=== PATIENT | female | born 1970 | race Caucasian/White ===

== ENCOUNTER 2019-04-12 05:17 | Observation (INO) | payer BC ==
[2019-04-09 09:46] LABS: HEMATOCRIT 32.5 % (36.0-47.0); HEMOGLOBIN 10.3 g/dL (12.0-15.5); MEAN CORPUSCULAR HEMOGLOBIN 23.9 pg (27.0-33.4); MEAN CORPUSCULAR HGB CONC 31.7 g/dL (32.0-36.0); MEAN CORPUSCULAR VOLUME 75 fl (80-97); PLATELET COUNT 369 10^3/uL (150-450); RED BLOOD COUNT 4.32 10^6/uL (3.72-5.28); WHITE BLOOD COUNT 6.9 10^3/uL (4.0-10.5)
[2019-04-09 10:09] LABS: ALKALINE PHOSPHATASE 55 U/L (38-126); ANION GAP 8 (5-19); ASPARTATE AMINO TRANSFERASE 20 U/L (14-36); BILIRUBIN,DIRECT 0.3 mg/dL (0.0-0.4); BILIRUBIN,TOTAL 0.5 mg/dL (0.2-1.3); BLOOD UREA NITROGEN 13 mg/dL (7-20); CALCIUM 9.2 mg/dL (8.4-10.2); CARBON DIOXIDE 28 mmol/L (22-30); CHLORIDE 102 mmol/L (98-107); GLUCOSE 78 mg/dL (75-110); POTASSIUM 4.4 mmol/L (3.6-5.0); TOTAL PROTEIN 7.3 g/dL (6.3-8.2)
[2019-04-09 10:35] LABS: APPEARANCE,URINE CLEAR; BILIRUBIN,URINE NEGATIVE (NEGATIVE); COLOR,URINE YELLOW; GLUCOSE, URINE NEGATIVE (NEGATIVE); KETONES,URINE NEGATIVE (NEGATIVE); LEUKOCYTE ESTERASE,URINE NEGATIVE (NEGATIVE); NITRITE,URINE NEGATIVE (NEGATIVE); PROTEIN,URINE NEGATIVE (NEGATIVE); URINE SPECIFIC GRAVITY 1.009; UROBILINOGEN,URINE NEGATIVE mg/dL (<2.0)
[~2019-04-12 05:17] MED LIST: CEFAZOLIN 1 GM/D5W RTU 1 GM/50 ML RTUPB IV ONE; CEFAZOLIN 1 GM/D5W RTU 1 GM/50 ML RTUPB IV PRN; LACTATED RINGERS 1000 ML IV PRN; LIDOCAINE 0.5% INJ-PF (5 MG/ML) 50 ML SDV SUBCUT PRN
[2019-04-12] MEDS ORDERED: FENTANYL CITRATE INJ/PF 100 MCG/2 ML AMPUL ONE ×2 (06:49→09:01)
[2019-04-12] MEDS ORDERED: HYDROMORPHONE HCL INJ/PF 2 MG/ML AMPULE ONE (06:49)
[2019-04-12] MEDS ORDERED: MIDAZOLAM 2 MG/2 ML INJ ONE (06:50)
[2019-04-12] MEDS ORDERED: PROPOFOL INJ 200 MG/20 ML VIAL IV ONE (06:50)
[2019-04-12] MEDS ORDERED: SUCCINYLCHOLINE CHLORIDE INJ 200 MG/10 ML VIAL ONE (09:01)
[2019-04-12] MEDS ORDERED: DEXAMETHASONE SOD PHOSPHATE INJ 4 MG/1 ML VIAL ONE (09:01)
[2019-04-12] MEDS ORDERED: ONDANSETRON HCL INJ/PF 4 MG/2 ML SDV ONE (09:01)
[2019-04-12] MEDS ORDERED: KETOROLAC TROMETHAMINE 60 MG/2 ML SDV ONE (09:01)
[2019-04-12] MEDS ORDERED: VECURONIUM BROMIDE INJ 10 MG VIAL IV ONE (09:01)
[2019-04-12] MEDS ORDERED: LIDOCAINE 2% INJ-PF (20 MG/ML) 2 ML AMPUL ONE (09:01)
[2019-04-12] MEDS ORDERED: LIDOCAINE 1%/EPINEPHRINE INJ 20 ML VIAL ONE (09:46)
[2019-04-12] MEDS ORDERED: LIDOCAINE 1%/EPINEPHRINE INJ 20 ML VIAL INJ ONE (10:00)
[2019-04-12] MEDS ORDERED: ESTROGENS,CONJUGATED 0.625 MG/1 GM 30 GM TUBE PV ONE (10:00)
[2019-04-12] MEDS ORDERED: MEPERIDINE HCL/PF INJ 25 MG/1 ML DISP.SYRIN IV PRN (10:01)
[2019-04-12] MEDS ORDERED: MORPHINE SULFATE 10 MG/ML INJ IV PRN ×2 (10:01→10:52)
[2019-04-12] MEDS ORDERED: DIPHENHYDRAMINE HCL 50 MG/ML VIAL IV PRN (10:01)
[2019-04-12] MEDS ORDERED: PROMETHAZINE HCL INJ 25 MG/1 ML VIAL IV PRN (10:01)
[2019-04-12] MEDS ORDERED: FENTANYL CITRATE INJ/PF 100 MCG/2 ML AMPUL IV PRN ×3 (10:01)
[2019-04-12] MEDS ORDERED: ACETAMINOPHEN 1,000 MG/100 ML RTUPB IV ONE ×2 (10:45→19:00)
[2019-04-12] MEDS ORDERED: IBUPROFEN 800 MG TABLET PO PRN (10:54)
[2019-04-12] MEDS: FENTANYL CITRATE INJ/PF 100 MCG/2 ML AMPUL ONE ×3 (10:57→11:07)
--- NOTE | 2019-04-12 11:20 | Operative Report ---
Operative Report DATE OF SURGERY: 04/12/19 PREOPERATIVE DIAGNOSIS: abnormal uterine bleeding, pelvic pain, pelvic adhesive disease, posterior vaginal prolapse POSTOPERATIVE DIAGNOSIS: same OPERATION: Robotic assisted total laparoscopic hysterectomy with left salpingectomy right salpingo-oophorectomy lysis of adhesions and posterior vaginal repair SURGEON: ISAC LEE 1ST SCALLOPER: DAVID DUMONT ANESTHESIA: GA TISSUE REMOVED OR ALTERED: Uterus cervix left fallopian tube right fallopian tube and ovary COMPLICATIONS: None ESTIMATED BLOOD LOSS: 100 cc INTRAOPERATIVE FINDINGS: Stenotic cervix uterus approximately 14 weeks size, ring the uterus to the right pelvic sidewall, substance extruding from the right ovary with almost purulent appearance, left fallopian tube remnant. Left ovary with very small follicular cyst. PROCEDURE: Patient was taken to the operating room prepared and draped in normal sterile fashion in dorsolithotomy position. Under sterile conditions a Manrique catheter was placed to gravity. Speculum was placed into the vagina and the cervix was grasped on the anterior lip with a single-tooth tenaculum. The cervix was then attempted to be dilated to accommodate a medium V care uterine manipulator. Manipulator was placed with some difficulty. gloves were changed and attention was turned to the upper portion of the case. A 2-1/2 cm umbilical skin incision was made 11 blade and this was carried through to the underlying layer of fascia with the same 11 blade. It was grasped to Akbar's acted with Kishor's. Peritoneal cavity was entered bluntly. A GelPort was placed in a normal fashion the camera port and air seal in the appropriate locations. Peritoneal cavity was then inflated with approximately 2 L of CO2 gas. The camera was then introduced into the peritoneal cavity through the camera port and the patient was placed in st eep Trendelenburg. The above findings were noted. Under direct visualization two 5 mm ports were placed approximately 10 cm on either side of the umbilicus. The robot was then docked with the vessel sealer placed on the patient's left and the monopolar scissors placed placed on the patient's right. I then unscrubbed and set at the robotic console beginning with the left adnexa fallopian tube was transected from the ovary using the vessel sealer and monopolar scissors as needed. The fallopian tube was then removed through the assistance port. The ovarian ligament was then transected using the vessel sealer. The uterine artery was skeletonized using blunt dissection and ligated using the vessel sealer down to the level of the external cervical os. The bladder flap was then begun using monopolar scissors and blunt dissection over the V care cup noted through the mucosa. Attention was then turned to the right adnexa where the ovary was noted be somewhat abnormal in appearance . There was purulent substance coming off the ovary . This was a small amount . The ovary was tethered quite extensively to the pelvic sidewall with multiple adhesions . This findings and noting that the patient complained regularly of right adnexal pain , the decision was made to remove the right ovary . The IP ligament was identified and hugging the ovary the vessel sealer was used to ligate the IP ligament being the ovary from the pelvic sidewall. This point anatomy was difficult to define secondary to the adhesions. The adhesions to the pelvic sidewall were sheetlike and very thick. Following the contours of the uterus, these adhesions were transected did away from the uterine material. The round ligament was identified was transected with the vessel sealer as well and dissected away carefully. . The of the uterine artery was then transected using the vessel sealer and skeletonized using blunt dissection. The vessel sealer was again used to completely transect the uterine artery down to the level of the external cervical os. The bladder flap was completed using similar sharp and blunt dissection. Once the bladder was felt to be adequately away from the lower uterine segment, the colpotomy was begun on the anterior aspect of the cervix following the outline of the V care cup mucosa. The cup was followed in a circumferential fashion completely around the cervix until the specimen was completely freed. The specimen was then removed through the vaginal defect. The instruments were then changed to a Walter needle school bus driver and pro-grasp. A V lock needle was introduced through the ass istance port. The V lock needle was used to close the vaginal cuff with good hemostasis. The needle was then removed through the assistance port. The peritoneal cavity was carefully inspected the ureters were noted to both be peristalsing and there was no signs of hydroureter. The robot was then undocked. The fascia was closed at the umbilical skin incision seen 0 Vicryl 3 skin incisions were closed using 4-0 Vicryl. Attention was then turned to the noted grade 3 rectovaginal prolapse. Patient was positioned appropriately. In the posterior vaginal mucosa was identified and grasped with 2 Allis clamps in the midline. This mucosa was injected with approximately 9 cc of lidocaine with epi. And the mucosa was scored using a 15 blade. The mucosa was then dissected bilaterally the rectum vaginal prolapse from the mucosa. Once the dissection was found to be deep enough, 4 bridge sutures of 2-0 Vicryl pop offs were placed across the rectal defect and this defect was reduced underneath the sutures. Once this was completed adequately the excess vaginal mucosa was trimmed. And the mucosa was then closed using 2-0 Vicryl runner. A Kerlix was then covered in Premarin cream and packed in the vagina for vaginal packing. Case was concluded at this point, sponge lap and needle counts were correct x2 and the patient was taken to recovery in stable condition.
[2019-04-12] MEDS: KETOROLAC TROMETHAMINE INJ/PF 30 MG/1 ML SDV IV SCH ×2 (13:24→22:07)
[2019-04-12] MEDS: AMPICILLIN SODIUM/SULBACTAM NA 3 GM in NORMAL SALINE 100 ML IV SCH ×2 (14:26→22:07)
[2019-04-12] MEDS: RINGERS SOLUTION,LACTATED 1,000 ML IV PRN (19:52)
[2019-04-12] MEDS: OXYCODONE-ACETAMINOPHEN 5-325 MG TABLET PO PRN (20:10)
[2019-04-13] MEDS: OXYCODONE-ACETAMINOPHEN 5-325 MG TABLET PO PRN ×2 (02:14→08:31)
[2019-04-13] MEDS: RINGERS SOLUTION,LACTATED 1,000 ML IV PRN (05:06)
[2019-04-13] MEDS: AMPICILLIN SODIUM/SULBACTAM NA 3 GM in NORMAL SALINE 100 ML IV SCH (05:07)
[2019-04-13 05:39] LABS: HEMATOCRIT 28.8 % (36.0-47.0); HEMOGLOBIN 9.1 g/dL (12.0-15.5); MEAN CORPUSCULAR HEMOGLOBIN 23.8 pg (27.0-33.4); MEAN CORPUSCULAR HGB CONC 31.6 g/dL (32.0-36.0); MEAN CORPUSCULAR VOLUME 75 fl (80-97); PLATELET COUNT 283 10^3/uL (150-450); RED BLOOD COUNT 3.82 10^6/uL (3.72-5.28); RED CELL DISTRIBUTION WIDTH 15.8 % (11.5-14.0); WHITE BLOOD COUNT 14.4 10^3/uL (4.0-10.5)
--- NOTE | 2019-04-13 06:57 | PDOC DISCHARGE SUMMARY ---
Impression - Admit/DC Date/PCP Admission Date/Primary Care Provider: LORENA KUNZ MD Discharge Date: 04/13/19 - Discharge Diagnosis (1) Abnormal uterine and vaginal bleeding, unspecified Is this a current diagnosis for this admission?: Yes (2) Pelvic pain Is this a current diagnosis for this admission?: Yes (3) Pelvic adhesive disease Is this a current diagnosis for this admission?: Yes - Assessment Summary: underwent a Robotic assisted laparoscopic hysterectomy with right salpingo- oophorectomy, left salpingectomy and lysis of adhesions with a posterior vaginal repair. Patient has had an unremarkable postoperative course. Manrique is out and she is voiding normally. Ready to be discharged home - Additional Information Resuscitation Status: Full Code Discharge Diet: As Tolerated Discharge Activity: Balance Activity w/Rest, No Driving, No Lifting Over 10 Pounds, No Lifting/Push/Pulling, Pelvic Rest, No tub bath, Walk Frequently Referrals: LORENA KUNZ MD [Primary Care Provider] - Prescriptions: Oxycodone HCl/Acetaminophen [Percocet 5-325 mg Tablet] 1 tab PO Q6HP PRN #30 tablet PRN Reason: Ibuprofen [Motrin 800 mg Tablet] 800 mg PO Q8HP PRN #60 tablet PRN Reason: Home Medications: Calcium Carb, Citrate/Vit D3 [Calcium + D3 ER Tablet] 1 each PO DAILY 04/09/19 Cyanocobalamin (Vitamin B-12) [Vitamin B12] 2,500 mcg PO DAILY 04/09/19 Ibuprofen [Motrin 800 mg Tablet] 800 mg PO Q8HP PRN #60 tablet 04/13/19 Oxycodone HCl/Acetaminophen [Percocet 5-325 mg Tablet] 1 tab PO Q6HP PRN #30 ta blet 04/13/19 History of Present Illiness History of Present Illness: JEWELS DAVIS is a 48 year old female Physical Exam - Physical Exam Vital Signs: Temp Pulse Resp BP Pulse Ox 98.4 F 62 16 103/50 L 96 04/13/19 04:03 04/13/19 04:03 04/13/19 04:03 04/13/19 04:03 04/13/19 04:03 Intake & Output 04/11/19 04/12/19 04/13/19 06:59 06:59 06:59 Intake Total 0 4450 Output Total 2140 Balance 0 2310 Weight 104.33 kg 113 kg Results Laboratory Results: WBC 14.4 10^3/uL (4.0-10.5) H 04/13/19 04:56 RBC 3.82 10^6/uL (3.72-5.28) 04/13/19 04:56 Hgb 9.1 g/dL (12.0-15.5) L 04/13/19 04:56 Hct 28.8 % (36.0-47.0) L 04/13/19 04:56 MCV 75 fl (80-97) L 04/13/19 04:56 MCH 23.8 pg (27.0-33.4) L 04/13/19 04:56 MCHC 31.6 g/dL (32.0-36.0) L 04/13/19 04:56 RDW 15.8 % (11.5-14.0) H 04/13/19 04:56 Plt Count 283 10^3/uL (150-450) 04/13/19 04:56 Sodium 137.7 mmol/L (137-145) 04/09/19 09:13 Potassium 4.4 mmol/L (3.6-5.0) 04/09/19 09:13 Chloride 102 mmol/L (98-107) 04/09/19 09:13 Carbon Dioxide 28 mmol/L (22-30) 04/09/19 09:13 Anion Gap 8 (5-19) 04/09/19 09:13 BUN 13 mg/dL (7-20) 04/09/19 09:13 Creatinine 0.72 mg/dL (0.52-1.25) 04/09/19 09:13 Est GFR ( Amer) > 60 (>60) 04/09/19 09:13 Est GFR (MDRD) Non-Af > 60 (>60) 04/09/19 09:13 Glucose 78 mg/dL (75-110) 04/09/19 09:13 Calcium 9.2 mg/dL (8.4-10.2) 04/09/19 09:13 Total Bilirubin 0.5 mg/dL (0.2-1.3) 04/09/19 09:13 Direct Bilirubin 0.3 mg/dL (0.0-0.4) 04/09/19 09:13 Neonat Total Bilirubin Not Reportable 04/09/19 09:13 Neonat Direct Bilirubin Not Reportable 04/09/19 09:13 Neonat Indirect Bili Not Reportable 04/09/19 09:13 AST 20 U/L (14-36) 04/09/19 09:13 ALT 13 U/L (<35) 04/09/19 09:13 Alkaline Phosphatase 55 U/L (38-126) 04/09/19 09:13 Total Protein 7.3 g/dL (6.3-8.2) 04/09/19 09:13 Albumin 4.0 g/dL (3.5-5.0) 04/09/19 09:13 Urine Color YELLOW 04/09/19 09:10 Urine Appearance CLEAR 04/09/19 09:10 Urine pH 6.0 (5.0-9.0) 04/09/19 09:10 Ur Specific [place] 1.009 04/09/19 09:10 Urine Protein NEGATIVE mg/dL (NEGATIVE) 04/09/19 09:10 Urine Glucose (UA) NEGATIVE mg/dL (NEGATIVE) 04/09/19 09:10 Urine Ketones NEGATIVE mg/dL (NEGATIVE) 04/09/19 09:10 Urine Blood NEGATIVE (NEGATIVE) 04/09/19 09:10 Urine Nitrite NEGATIVE (NEGATIVE) 04/09/19 09:10 Urine Bilirubin NEGATIVE (NEGATIVE) 04/09/19 09:10 Urine Urobilinogen NEGATIVE mg/dL (<2.0) 04/09/19 09:10 Ur Leukocyte Esterase NEGATIVE (NEGATIVE) 04/09/19 09:10 Urine WBC (Auto) 0 /HPF 04/09/19 09:10 Urine RBC (Auto) 1 /HPF 04/09/19 09:10 Urine Bacteria (Auto) TRACE /HPF 04/09/19 09:10 Squamous Epi Cells Auto 1 /HPF 04/09/19 09:10 Urine Mucus (Auto) RARE /LPF 04/09/19 09:10 Urine Ascorbic Acid NEGATIVE (NEGATIVE) 04/09/19 09:10 Urine HCG, Qual NEGATIVE (NEGATIVE) 04/12/19 05:30 Blood Type AB POSITIVE 04/09/19 09:13 Antibody Screen NEGATIVE 04/09/19 09:13 Stroke Is this a Stroke Patient?: No Acute Heart Failure - Is this a Heart Failure Patient?: No
[2019-04-13] MEDS ORDERED: ONDANSETRON 4 MG TAB.RAPDIS PO ONE (09:00)
[2019-04-13 09:01] VITALS: BP 118/67
== END 2019-04-13 09:19 | disposition home or self-care (01) ==
LOC: OROUT 05:17 → 2N 12:00 → OROUT 12:29 → 2N 12:30 → OROUT 04-13 09:19 → 2N 04-13 09:19
PROVIDERS: ADMIT Obstetrics & Gynecology; ATTEND Obstetrics & Gynecology
DX: N80.0 Endometriosis of uterus (principal); N80.2 Endometriosis of fallopian tube; N73.6 Female pelvic peritoneal adhesions (postinfective); N83.11 Corpus luteum cyst of right ovary; N83.01 Follicular cyst of right ovary; N81.6 Rectocele; N93.9 Abnormal uterine and vaginal bleeding, unspecified; R10.2 Pelvic and perineal pain; N88.2 Stricture and stenosis of cervix uteri; Z90.49 Acquired absence of other specified parts of digestive tract; Z98.51 Tubal ligation status; Z79.1 Long term (current) use of non-steroidal anti-inflammatories (NSAID)
CPT/HCPCS: 57250; 58571; S2900; 36415; 80053; 81001; 81025; 85027; 86850; 86900; 86901; 88307; 944; A4649; J0131; J0295; J0330; J0690; J1100; J1170; J1885; J2250; J2270; J2405; J2704; J3010; J3490; J7050; J7120; S0119